=== PATIENT | male | born 1985 | race African-American/Black ===

== ENCOUNTER 2023-11-10 14:55 | Outpatient (AMB) | payer OTHER, MEDICAID, SELFPAY ==
--- NOTE | 2023-11-10 15:07 | A.OFFVIS_ITS ---
Intake Vital Signs 11/10/23 15:41 Height 5 ft 10 in Weight 230 lb BMI 33.0 BP 152/90 H Blood Pressure Location Lt brachial Position Sitting Respiration 18 Pulse 87 Pulse Source Pulse Oximeter Pulse Oximetry (%) 98 Oxygen Delivery Method Room Air Intake Visit Reasons: unspecified back pain Allergies cholecalciferol (vitamin D3) [From Cardiamin] Allergy (Intermediate, Verified 11/10/23 15:40) Unknown docosahexaenoic acid [From Cardiamin] Allergy (Intermediate, Verified 11/10/23 15:40) Unknown eicosapentaenoic acid [From Cardiamin] Allergy (Intermediate, Verified 11/10/23 15:40) Unknown fish oil [From Cardiamin] Allergy (Intermediate, Verified 11/10/23 15:40) Unknown folic acid [From Cardiamin] Allergy (Intermediate, Verified 11/10/23 15:40) Unknown multivitamin with minerals [From Cardiamin] Allergy (Intermediate, Verified 11/10/23 15:40) Unknown omega-3 fatty acids [From Cardiamin] Allergy (Intermediate, Verified 11/10/23 15:40) Unknown povidone-iodine [From Betadine] Allergy (Intermediate, Verified 11/10/23 15:40) Unknown ziprasidone Allergy (Intermediate, Verified 11/10/23 15:40) Unknown tree and shrub pollen Allergy (Mild, Verified 11/10/23 15:40) Unknown natalizumab [From Tysabri] Allergy (Unknown, Verified 11/10/23 15:40) Unknown enviromental Allergy (Mild, Uncoded 11/10/23 15:40) Unknown HPI HPI Comments History of Present Illness Details Adilene is a very pleasant 38-year-old male who presents the office today for evaluation management of his myofascial back pain. Patient reports he has been suffering with this pain for many years, he attributes it to his multiple sclerosis diagnosis. He denies inciting injury such as fall, motor vehicle accident or other trauma. Pain to left middle back and bilateral neck. Most significant pain is the left middle back which is where he would like to focus on today. Rated today is 9/10, intermittent and worse in the evenings and at night. Pain is exacerbated by movements and weather. Works as a personal lines account manager and states this also exacerbates his pain. He has been to physical therapy multiple times all with short-term benefits, yet pain persists. He is tried chiropractor without improvement of his symptoms. He has taken Tylenol, nonsteroidal anti-inflammatory medication, tramadol without improvement. He is tried topical medications, lidocaine patches, heat, ice and massage without resolution of his symptoms Pain is worse with moving, bending, twisting. In terms of muscle damage condition is described as aching, stabbing, sharp, cramping, squeezing, throbbing. Pain is negatively impacting patient's enjoyment of life, general activity, mood, normal work, recreational activities, walking and work. Patient denies implantable devices, denies current use of anticoagulation. 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 Answers questions appropriately. Fully engaged in examination. Skin: warm, dry, intact HEENT: Normocephalic. Hearing intact. Cardiac: External chest normal in appearance. Respiratory: No cough, audible wheezing or stridor. Abdomen: without gross distension. MS: No obvious swelling or deformities. Tenderness midline thoracic vertebrae and thoracic paraspinal muscles Trigger points and palpable taut bands left rhomboid muscle BUE strength 5/5 Neurological: Oriented to person, place, time and situation. Thought process intact. Psychiatric: Appropriate mood and affect. Good judgment and insight. Assessment & Plan Assessment & Plan (1) Myofascial muscle pain: Code(s): M79.18 - Myalgia, other site (2) Degenerative disc disease, thoracic: Code(s): M51.34 - Other intervertebral disc degeneration, thoracic region Plan Adilene is a very pleasant 38 year old male who presented to the office for evaluation and management of his chronic left thoracic back pain Patient has exhausted greater than 6 months of conservative therapy including NSAIDs, PT, HEP, acupuncture and prescription medications. Discussed options for treatment including diagnostic interventional testing, steroid injections, peripheral nerve stimulation with Sprint, RFA and more permanent neuromodulation. Lidocaine 5% patches as directed Methocarbamol 500 mg p.o. t.i.d. as needed, patient advised on cautions for use Will schedule for Fluoroscopy guided diagnostic left T5 T6 T7 MBBs with local anesthetic. Plan for sprint PNS pending positive results of the diagnostic testing All questions and concerns have been answered and patient agrees with the plan. Follow up after injections and sooner if needed. Medications: New lidocaine 5% leave on most painful area for up to 12 hrs 1 patch topical DAILY PRN 30 ea 3RF pain methocarbamol No driving while taking this medication. 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
[2023-11-10 15:41] VITALS: BP 152/90; PULSE 87; RESP 18; O2SAT 98; BMI 33.0
== END 2023-11-10 15:54 | disposition home or self-care (01) ==
PROVIDERS: PCP Internal Medicine; Visit Provider Registered Nurse Emergency
DX: M79.18 Myalgia, other site (principal); M51.34 Other intervertebral disc degeneration, thoracic region
CPT/HCPCS: 99204

== ENCOUNTER → 2023-11-10 14:55 | Outpatient (BNVA) | payer OTHER, MEDICAID, SELFPAY | PROVIDERS: PCP Internal Medicine; Visit Provider Registered Nurse Emergency ==

== ENCOUNTER 2024-01-04 06:21 | Outpatient (REF) | payer OTHER, MEDICAID, SELFPAY | END 2024-01-04 06:22 | disposition home or self-care (01) | LOC: CF 06:21 | PROVIDERS: Visit Provider Anesthesiology | DX: Z13.89 Encounter for screening for other disorder (principal) ==